=== PATIENT | female | born 1945 | race Caucasian/White ===

== ENCOUNTER → 2016-11-27 | Outpatient (CLI) | payer OTHER | END | disposition home or self-care (01) | LOC: RES 10:00 | DX: R94.2 Abnormal results of pulmonary function studies (principal) | CPT/HCPCS: 94060; 94726; 94729 ==

== ENCOUNTER → 2017-10-22 | Outpatient (CLI) | payer MEDICARE, BC ==
[~2017-10-22] MED LIST: ALDACTONE25 MG PO; CIPRO500 MG PO; DULERA 100 MCG/13 GM IH; FLONASE ALLERG9.9 ML BOTH NARES; INCRUSE ELLI62.5 MCG IH; LO-DOSE ASPIRIN81 M1 PO; SYNTHROID150 MCG PO; SYNTHROID175 MCG PO; VITAMIN D31000 UNI2 PO
== END | disposition home or self-care (01) ==
LOC: CDC 10:13
DX: Z01.810 Encounter for preprocedural cardiovascular examination (principal); I49.3 Ventricular premature depolarization
CPT/HCPCS: 93000

== ENCOUNTER 2017-10-24 08:50 | Day surgery (SDC) | payer OTHER, BC ==
[~2017-10-24] VITALS: Ht 165.1 cm; Wt 113.4 kg
[2017-10-24 09:24] VITALS: BP 111/55
[2017-10-24 12:15] VITALS: BP 97/51
[2017-10-24 13:20] VITALS: BP 108/59
[2017-10-24 15:25] VITALS: BP 107/52
[2017-10-24 16:40] VITALS: BP 107/58
== END 2017-10-24 16:50 | disposition home or self-care (01) ==
LOC: SDC 08:50
DX: R31.0 Gross hematuria (principal); R94.4 Abnormal results of kidney function studies; R59.0 Localized enlarged lymph nodes; D49.512 Neoplasm of unspecified behavior of left kidney; D49.59 Neoplasm of unspecified behavior of other genitourinary organ; I12.9 Hypertensive chronic kidney disease with stage 1 through stage 4 chronic kidney disease, or unspecified chronic kidney disease; N18.3 Chronic kidney disease, stage 3 (moderate); E66.01 Morbid (severe) obesity due to excess calories; Z68.41 Body mass index [BMI] 40.0-44.9, adult; J44.9 Chronic obstructive pulmonary disease, unspecified; Z86.19 Personal history of other infectious and parasitic diseases; Z87.442 Personal history of urinary calculi; R15.9 Full incontinence of feces; N39.3 Stress incontinence (female) (male); Z87.891 Personal history of nicotine dependence; Z79.82 Long term (current) use of aspirin; Z88.8 Allergy status to other drugs, medicaments and biological substances; Z88.2 Allergy status to sulfonamides; Z88.0 Allergy status to penicillin; Z91.041 Radiographic dye allergy status; Z91.040 Latex allergy status; Z83.3 Family history of diabetes mellitus; Z80.3 Family history of malignant neoplasm of breast
CPT/HCPCS: 74018; 76000; 88108; 88305; 88342 TC; C1758; C2625; J1580; J2710; J3010; J7050; J7643; Q0175

== ENCOUNTER → 2017-11-21 | Outpatient (CLI) | payer OTHER, BC ==
[2017-11-21 09:03] LABS: INTER. NORMALIZED RATIO 1.3
[2017-11-21 09:06] LABS: PTT 25.8 SEC (25-37)
[2017-11-21 09:11] LABS: HEMOGLOBIN 8.3 G/DL (11.9-15.5); MCH 21.1 PG (29.0-34.0); MCHC 29.6 G/DL (30.0-36.0); MCV 71.2 FL (83-99); PLATELET COUNT 555 K/uL (156-360); RBC DIS.WIDTH-CV 18.1 % (11.8-14.6); RBC DIS.WIDTH-SD 47.3 % (39-53); RED BLOOD COUNT 3.93 M/uL (3.80-5.20)
== END | disposition home or self-care (01) ==
LOC: OPR 07:58 → EDSTATUS 09:00 → OPR 09:00
PROVIDERS: Urology
DX: R19.00 Intra-abdominal and pelvic swelling, mass and lump, unspecified site (principal); N15.1 Renal and perinephric abscess; I12.9 Hypertensive chronic kidney disease with stage 1 through stage 4 chronic kidney disease, or unspecified chronic kidney disease; E11.22 Type 2 diabetes mellitus with diabetic chronic kidney disease; N18.9 Chronic kidney disease, unspecified; E03.9 Hypothyroidism, unspecified; Z87.891 Personal history of nicotine dependence; Z88.0 Allergy status to penicillin; Z88.2 Allergy status to sulfonamides; Z88.8 Allergy status to other drugs, medicaments and biological substances; Z91.041 Radiographic dye allergy status; Z91.040 Latex allergy status; Z79.82 Long term (current) use of aspirin
CPT/HCPCS: 77012; 82948; 85027; 85610; 85730; 87070; 87075; 87077; 87186; 87205; 88305; 88341 TC; 88342 TC; J3010